=== PATIENT | female | born 1970 | race Caucasian/White ===

== ENCOUNTER → 2017-10-01 | Outpatient (CLI) | payer OTHER | LOC: BC 13:06 | DX: Z12.31 Encounter for screening mammogram for malignant neoplasm of breast (principal) ==

== ENCOUNTER → 2019-09-04 | Outpatient (CLI) | payer OTHER | LOC: BC 13:35 | DX: Z12.31 Encounter for screening mammogram for malignant neoplasm of breast (principal) ==